=== PATIENT | male | born 1935 | race Caucasian/White ===

== ENCOUNTER 2020-01-06 13:59 | Inpatient (IN) ==
[2020-01-06] MEDS ORDERED: Naloxone 0.4 MG/ML INJ IVP PRN (17:00)
[2020-01-06] MEDS: 0.9 % Sodium Chloride 1,000 ML IVC SCH (18:02)
[2020-01-06] MEDS: cefTRIAXone 1,000 MG in Water for inj. (sterile) 10 ML IVP SCH (18:03)
[2020-01-06 19:01] LABS: Basophils % 0.2 %; Hematocrit 25.7 % (37.5-50.1); Hemoglobin 8.7 g/dL (12.9-16.9); Immature Granulocytes % 0.5 % (0-4); Lymphocytes # 0.2 K/mcL (0.6-4.6); Lymphocytes % 3.1 %; Mean Corpuscular HGB Conc 33.9 g/dL (31.6-35.5); Mean Corpuscular Hemoglobin 29.1 pg (28.0-33.3); Mean Platelet Volume 10.5 fL (9.4-12.4); Monocytes # 0.1 K/mcL (0.0-1.3); Monocytes % 0.8 %; Neutrophils # 5.8 K/mcL (1.6-8.9); Platelet Count 231 K/mcL (140-400); Red Blood Count 2.99 M/mcL (4.19-5.50); Red Cell Distribution Width 13.1 % (11.5-14.5); Segmented Neutrophils % 95.4 %; White Blood Count 6.1 K/mcL (4.3-11.1)
[2020-01-06 19:19] LABS: Platelet Estimate Normal (Normal)
[2020-01-06 19:20] LABS: Potassium 4.2 mEq/L (3.5-5.1)
[2020-01-06] MEDS ORDERED: amLODIPine 5 MG TABLET PO SCH (21:00)
[2020-01-06 23:20] LABS: Calcium 10.3 mg/dL (8.6-10.3); Potassium 4.3 mEq/L (3.5-5.1)
[2020-01-06] MEDS: *HR* LORazepam 1 MG TABLET PO SCH (23:28)
[2020-01-07] MEDS: 0.9 % Sodium Chloride 1,000 ML IVC SCH (05:03)
[2020-01-07 05:44] LABS: Hematocrit 24.1 % (37.5-50.1); Hemoglobin 8.2 g/dL (12.9-16.9); Immature Granulocytes % 0.6 % (0-4); Lymphocytes # 0.4 K/mcL (0.6-4.6); Lymphocytes % 10.3 %; Mean Corpuscular Hemoglobin 29.1 pg (28.0-33.3); Mean Corpuscular Volume 85.5 fL (83.0-100.0); Mean Platelet Volume 10.4 fL (9.4-12.4); Monocytes % 1.1 %; Neutrophils # 3.2 K/mcL (1.6-8.9); Platelet Count 212 K/mcL (140-400); Red Blood Count 2.82 M/mcL (4.19-5.50); Red Cell Distribution Width 13.2 % (11.5-14.5); White Blood Count 3.6 K/mcL (4.3-11.1)
[2020-01-07 06:03] LABS: Calcium 10.5 mg/dL (8.6-10.3); Magnesium 1.9 mg/dL (1.6-2.6); Potassium 4.3 mEq/L (3.5-5.1)
[2020-01-07] MEDS: atenoloL 25 MG TABLET PO SCH (07:22)
[2020-01-07] MEDS: Isosorbide MONOnitrate (24 HR) 30 MG TAB.ER.24H PO SCH (07:23)
[2020-01-07] MEDS: amLODIPine 5 MG TABLET PO SCH (07:23)
[2020-01-07] MEDS ORDERED: *HR* LORazepam 1 MG TABLET PO SCH (09:00)
[2020-01-07] MEDS: cefTRIAXone 1,000 MG in Water for inj. (sterile) 10 ML IVP SCH (17:54)
[2020-01-07] MEDS: *HR* LORazepam 1 MG TABLET PO SCH (20:03)
[2020-01-08 03:56] LABS: Hematocrit 23.2 % (37.5-50.1); Hemoglobin 7.5 g/dL (12.9-16.9); Mean Corpuscular HGB Conc 32.3 g/dL (31.6-35.5); Mean Corpuscular Hemoglobin 28.8 pg (28.0-33.3); Mean Corpuscular Volume 89.2 fL (83.0-100.0); Mean Platelet Volume 10.6 fL (9.4-12.4); Platelet Count 205 K/mcL (140-400); Red Cell Distribution Width 13.5 % (11.5-14.5)
[2020-01-08 03:57] LABS: White Blood Count 6.8 K/mcL (4.3-11.1)
[2020-01-08 04:15] LABS: Calcium 9.2 mg/dL (8.6-10.3); Potassium 4.1 mEq/L (3.5-5.1)
[2020-01-08] MEDS: atenoloL 25 MG TABLET PO SCH (07:31)
[2020-01-08] MEDS: amLODIPine 5 MG TABLET PO SCH (07:32)
[2020-01-08] MEDS: Isosorbide MONOnitrate (24 HR) 30 MG TAB.ER.24H PO SCH (07:32)
[2020-01-08] MEDS: Azithromycin 250 MG TABLET PO SCH (10:07)
[2020-01-08] MEDS ORDERED: Ipratropium/Albuterol Neb 3 ML IH PRN (11:21)
[2020-01-08] MEDS: Furosemide 20 MG/2 ML VIAL IVP SCH ×2 (11:33→20:55)
[2020-01-08] MEDS: MethylPREDNISolone 40 MG/ML VIAL IVP SCH ×2 (11:36→17:29)
[2020-01-08] MEDS: Budesonide/Formoterol 160/4.5 1 PUFF INH IH SCH ×2 (11:49→19:57)
[2020-01-08 13:51] LABS: Total Volume 24 Hour,Urine 0.56 Liters (0.80-1.80)
[2020-01-08 13:58] LABS: Sodium, Urine 28.7 mEq/L
[2020-01-08 14:11] LABS: Hematocrit 24.5 % (37.5-50.1); Hemoglobin 8.2 g/dL (12.9-16.9)
[2020-01-08 14:47] LABS: Basophils % 0.1 %; Eosinophils % 0.3 %; Immature Granulocytes % 0.4 % (0-4); Lymphocytes # 0.3 K/mcL (0.6-4.6); Lymphocytes % 4.5 %; Mean Corpuscular HGB Conc 33.2 g/dL (31.6-35.5); Mean Corpuscular Hemoglobin 29.5 pg (28.0-33.3); Mean Corpuscular Volume 88.8 fL (83.0-100.0); Mean Platelet Volume 11.1 fL (9.4-12.4); Monocytes # 0.3 K/mcL (0.0-1.3); Monocytes % 3.3 %; Neutrophils # 6.9 K/mcL (1.6-8.9); Platelet Count 228 K/mcL (140-400); Red Blood Count 2.85 M/mcL (4.19-5.50); Red Cell Distribution Width 13.5 % (11.5-14.5); Segmented Neutrophils % 91.4 %; White Blood Count 7.6 K/mcL (4.3-11.1)
[2020-01-08] MEDS: cefTRIAXone 1,000 MG in Water for inj. (sterile) 10 ML IVP SCH (17:29)
[2020-01-08] MEDS: *HR* LORazepam 1 MG TABLET PO SCH (22:44)
[2020-01-09 02:22] LABS: Hematocrit 22.7 % (37.5-50.1); Hemoglobin 7.6 g/dL (12.9-16.9); Immature Granulocytes % 0.5 % (0-4); Lymphocytes # 0.3 K/mcL (0.6-4.6); Lymphocytes % 6.6 %; Mean Corpuscular HGB Conc 33.5 g/dL (31.6-35.5); Mean Corpuscular Hemoglobin 29.3 pg (28.0-33.3); Mean Corpuscular Volume 87.6 fL (83.0-100.0); Mean Platelet Volume 10.4 fL (9.4-12.4); Monocytes % 0.8 %; Neutrophils # 3.5 K/mcL (1.6-8.9); Platelet Count 195 K/mcL (140-400); Red Blood Count 2.59 M/mcL (4.19-5.50); Red Cell Distribution Width 13.1 % (11.5-14.5); Segmented Neutrophils % 92.1 %
[2020-01-09 02:30] LABS: White Blood Count 3.8 K/mcL (4.3-11.1)
[2020-01-09 02:34] LABS: Calcium 8.6 mg/dL (8.6-10.3); Potassium 4.6 mEq/L (3.5-5.1)
[2020-01-09] MEDS: MethylPREDNISolone 40 MG/ML VIAL IVP SCH ×2 (06:27→17:06)
[2020-01-09] MEDS: atenoloL 25 MG TABLET PO SCH (07:30)
[2020-01-09] MEDS: amLODIPine 5 MG TABLET PO SCH (07:30)
[2020-01-09] MEDS: Isosorbide MONOnitrate (24 HR) 30 MG TAB.ER.24H PO SCH (07:30)
[2020-01-09] MEDS: Furosemide 20 MG/2 ML VIAL IVP SCH ×2 (07:30→19:58)
[2020-01-09] MEDS: Azithromycin 250 MG TABLET PO SCH (10:41)
[2020-01-09] MEDS: Budesonide/Formoterol 160/4.5 1 PUFF INH IH SCH ×2 (10:55→20:14)
[2020-01-09] MEDS: cefTRIAXone 1,000 MG in Water for inj. (sterile) 10 ML IVP SCH (17:06)
[2020-01-09] MEDS: *HR* LORazepam 1 MG TABLET PO SCH (19:58)
[2020-01-10 01:17] LABS: Hematocrit 23.4 % (37.5-50.1); Hemoglobin 7.8 g/dL (12.9-16.9); Immature Granulocytes % 0.4 % (0-4); Lymphocytes # 0.3 K/mcL (0.6-4.6); Lymphocytes % 4.4 %; Mean Corpuscular HGB Conc 33.3 g/dL (31.6-35.5); Mean Corpuscular Hemoglobin 29.3 pg (28.0-33.3); Mean Platelet Volume 10.5 fL (9.4-12.4); Monocytes # 0.1 K/mcL (0.0-1.3); Monocytes % 1.8 %; Neutrophils # 6.6 K/mcL (1.6-8.9); Platelet Count 205 K/mcL (140-400); Red Blood Count 2.66 M/mcL (4.19-5.50); Red Cell Distribution Width 13.1 % (11.5-14.5); Segmented Neutrophils % 93.4 %
[2020-01-10 01:28] LABS: White Blood Count 7.1 K/mcL (4.3-11.1)
[2020-01-10 01:35] LABS: Calcium 8.7 mg/dL (8.6-10.3); Potassium 4.6 mEq/L (3.5-5.1)
[2020-01-10] MEDS: MethylPREDNISolone 40 MG/ML VIAL IVP SCH ×2 (05:10→17:06)
[2020-01-10] MEDS: Budesonide/Formoterol 160/4.5 1 PUFF INH IH SCH ×2 (07:57→21:22)
[2020-01-10] MEDS: Furosemide 20 MG/2 ML VIAL IVP SCH (08:00)
[2020-01-10] MEDS: Isosorbide MONOnitrate (24 HR) 30 MG TAB.ER.24H PO SCH (08:39)
[2020-01-10] MEDS: atenoloL 25 MG TABLET PO SCH (08:39)
[2020-01-10] MEDS: amLODIPine 5 MG TABLET PO SCH (08:39)
[2020-01-10] MEDS: Azithromycin 250 MG TABLET PO SCH (10:11)
[2020-01-10] MEDS: cefTRIAXone 1,000 MG in Water for inj. (sterile) 10 ML IVP SCH (17:06)
[2020-01-10] MEDS: *HR* LORazepam 1 MG TABLET PO SCH (20:49)
[2020-01-11 01:04] LABS: Hematocrit 22.7 % (37.5-50.1); Hemoglobin 7.6 g/dL (12.9-16.9); Immature Granulocytes % 0.7 % (0-4); Lymphocytes # 0.3 K/mcL (0.6-4.6); Lymphocytes % 4.5 %; Mean Corpuscular HGB Conc 33.5 g/dL (31.6-35.5); Mean Corpuscular Hemoglobin 29.3 pg (28.0-33.3); Mean Corpuscular Volume 87.6 fL (83.0-100.0); Mean Platelet Volume 11.1 fL (9.4-12.4); Monocytes # 0.2 K/mcL (0.0-1.3); Monocytes % 2.7 %; Neutrophils # 5.5 K/mcL (1.6-8.9); Platelet Count 216 K/mcL (140-400); Red Blood Count 2.59 M/mcL (4.19-5.50); Red Cell Distribution Width 13.1 % (11.5-14.5); Segmented Neutrophils % 92.1 %
[2020-01-11 01:21] LABS: Calcium 8.2 mg/dL (8.6-10.3); Potassium 4.5 mEq/L (3.5-5.1); Uric Acid 13.7 mg/dL (2.3-7.6)
[2020-01-11 01:33] LABS: Thyroid Stimulating Hormone 0.57 mcIU/mL (0.340-5.600)
[2020-01-11] MEDS: MethylPREDNISolone 40 MG/ML VIAL IVP SCH (05:33)
[2020-01-11] MEDS: Budesonide/Formoterol 160/4.5 1 PUFF INH IH SCH ×2 (07:07→19:36)
[2020-01-11] MEDS: atenoloL 25 MG TABLET PO SCH (08:00)
[2020-01-11] MEDS: amLODIPine 5 MG TABLET PO SCH (08:00)
[2020-01-11] MEDS: Isosorbide MONOnitrate (24 HR) 30 MG TAB.ER.24H PO SCH (08:00)
[2020-01-11 08:58] LABS: Bacteria,Urine Few per hpf (None-Few); Bilirubin,Urine Negative (Negative); Blood,Urine Negative (Negative); Clarity,Urine Clear (Clear); Color,Urine Colorless (Yellow); Glucose,Urine (UA) Normal (Normal); Ketones,Urine Negative (Negative); Leukocyte Esterase,Urine Negative (Negative); Mucus,Urine Few per lpf (None-Few); Nitrite,Urine Negative (Negative); Protein,Urine 100 mg/dL (Neg-Trace); RBC,Urine 0-3 per hpf (0-3); Specific Gravity,Urine 1.012 (1.010-1.025); Squamous Epithelial Cell,Urine Few per hpf (None-Few); Urobilinogen,Urine Normal (Normal)
[2020-01-11] MEDS: Azithromycin 250 MG TABLET PO SCH (10:40)
[2020-01-11] MEDS: allopurinoL 100 MG TABLET PO SCH (14:39)
[2020-01-11] MEDS: hydrALAZINE 25 MG TABLET PO SCH (17:27)
[2020-01-11] MEDS: cefTRIAXone 1,000 MG in Water for inj. (sterile) 10 ML IVP SCH (17:28)
[2020-01-11] MEDS: *HR* LORazepam 1 MG TABLET PO SCH (20:42)
[2020-01-12] MEDS: hydrALAZINE 25 MG TABLET PO SCH ×2 (00:17→07:37)
[2020-01-12 05:59] LABS: Basophils % 0.1 %; Eosinophils % 0.1 %; Hematocrit 24.1 % (37.5-50.1); Hemoglobin 8.2 g/dL (12.9-16.9); Immature Granulocytes % 1.3 % (0-4); Lymphocytes # 0.8 K/mcL (0.6-4.6); Lymphocytes % 8.4 %; Mean Corpuscular Hemoglobin 29.6 pg (28.0-33.3); Monocytes # 0.9 K/mcL (0.0-1.3); Monocytes % 9.3 %; Platelet Count 213 K/mcL (140-400); Red Blood Count 2.77 M/mcL (4.19-5.50); Red Cell Distribution Width 13.2 % (11.5-14.5); Segmented Neutrophils % 80.8 %
[2020-01-12 06:00] LABS: Neutrophils # 7.8 K/mcL (1.6-8.9); White Blood Count 9.6 K/mcL (4.3-11.1)
[2020-01-12 06:25] LABS: Calcium 8.5 mg/dL (8.6-10.3)
[2020-01-12 06:48] LABS: Folate > 22.3 ng/mL (3.0-16.0); Vitamin B12 1178 pg/mL (250-1100)
[2020-01-12] MEDS: Budesonide/Formoterol 160/4.5 1 PUFF INH IH SCH (07:10)
[2020-01-12] MEDS: Isosorbide MONOnitrate (24 HR) 30 MG TAB.ER.24H PO SCH (07:37)
[2020-01-12] MEDS: allopurinoL 100 MG TABLET PO SCH (07:37)
[2020-01-12] MEDS: amLODIPine 5 MG TABLET PO SCH (07:37)
[2020-01-12] MEDS: atenoloL 25 MG TABLET PO SCH (07:37)
[2020-01-12 08:56] LABS: Protein/Creatinine Ratio,Urine 1.59 mg/mg (0.00-0.20); Sodium, Urine 15.9 mEq/L
[2020-01-12] MEDS ORDERED: predniSONE 20 MG TABLET PO SCH (09:00)
[2020-01-12 11:13] VITALS: BP 143/67
[2020-01-12] MEDS: Azithromycin 250 MG TABLET PO SCH (11:35)
== END 2020-01-12 15:50 | disposition home health service (06) | DRG 193 ==
LOC: 2NENU → SUATTDRO 01-08 12:13 → 2ANU 01-08 18:40
PROVIDERS: ADMIT Pharmacist; ATTEND Internal Medicine

== ENCOUNTER 2020-02-08 15:43 | Inpatient (IN) ==
[2020-02-08 16:53] LABS: Basophils % 0.1 %; Hematocrit 24.9 % (37.5-50.1); Hemoglobin 8.2 g/dL (12.9-16.9); Immature Granulocytes % 1.7 % (0-4); Lymphocytes # 0.3 K/mcL (0.6-4.6); Lymphocytes % 4.5 %; Mean Corpuscular HGB Conc 32.9 g/dL (31.6-35.5); Mean Corpuscular Hemoglobin 29.7 pg (28.0-33.3); Mean Corpuscular Volume 90.2 fL (83.0-100.0); Mean Platelet Volume 10.8 fL (9.4-12.4); Monocytes # 0.2 K/mcL (0.0-1.3); Monocytes % 2.5 %; Neutrophils # 6.3 K/mcL (1.6-8.9); Platelet Count 223 K/mcL (140-400); Red Blood Count 2.76 M/mcL (4.19-5.50); Red Cell Distribution Width 15.5 % (11.5-14.5); Segmented Neutrophils % 91.2 %; White Blood Count 6.9 K/mcL (4.3-11.1)
[2020-02-08 16:57] LABS: Prothrombin Time 11.5 Seconds (9.4-12.1)
[2020-02-08 17:00] LABS: Activated Partial Thrombo Time 24.9 Seconds (26.0-36.0)
[2020-02-08 17:16] LABS: Albumin 3.8 g/dL (3.5-5.7); Albumin/Globulin Ratio 1.7 (1.1-2.2); Bilirubin,Direct 0.1 mg/dL (0.0-0.2); Bilirubin,Indirect 0.3 mg/dL (0.0-1.0); Bilirubin,Total 0.4 mg/dL (0.3-1.0); Calcium 10.2 mg/dL (8.6-10.3); Globulin 2.3 g/dL (2.4-3.5); Potassium 4.3 mEq/L (3.5-5.1); Total Protein 6.1 g/dL (6.4-8.9); Troponin I 0.04 ng/mL (< 0.04)
[2020-02-08] MEDS ORDERED: *HR* Heparin 5,000 UNIT/ML VIAL IVP ONE (19:29)
[2020-02-08] MEDS ORDERED: *HR* Heparin 5,000 UNIT/ML VIAL IVP PRN ×2 (19:29)
[2020-02-08] MEDS ORDERED: Heparin 25,000 UNIT/250 ML D5W 25,000 UNIT/250 ML IV.SOLN IVC SCH (19:30)
[2020-02-08] MEDS ORDERED: Ondansetron 4 MG/2 ML VIAL IVP PRN (20:07)
[2020-02-08] MEDS ORDERED: Naloxone 0.4 MG/ML INJ IVP PRN (20:07)
[2020-02-08] MEDS ORDERED: D5% in Water 1,000 ML IVC PRN (20:12)
[2020-02-08] MEDS ORDERED: Dextrose Gel 15 GM/37.5 ML TUBE PO PRN ×2 (20:12)
[2020-02-08] MEDS ORDERED: *HR* Dextrose 50 % in Water (Vial) 50 ML VIAL IVP PRN (20:12)
[2020-02-08 20:24] LABS: Bilirubin,Urine Negative (Negative); Blood,Urine Negative (Negative); Clarity,Urine Clear (Clear); Color,Urine Light-Yellow (Yellow); Glucose,Urine (UA) Normal (Normal); Ketones,Urine Negative (Negative); Leukocyte Esterase,Urine Negative (Negative); Nitrite,Urine Negative (Negative); PH,Urine 5.5 pH Units (5.0-8.0); Protein,Urine 50 mg/dL (Neg-Trace); Specific Gravity,Urine 1.012 (1.010-1.025); Squamous Epithelial Cell,Urine Few per hpf (None-Few); Urobilinogen,Urine Normal (Normal); WBC,Urine 0-3 per hpf (0-3)
[2020-02-08] MEDS ORDERED: Furosemide 40 MG/4 ML VIAL IVP ONE (20:46)
[2020-02-08] MEDS ORDERED: 0.9 % Sodium Chloride 1,000 ML IVC SCH (21:00)
[2020-02-08] MEDS ORDERED: Insulin DETEMIR 100 UNIT/ML X5UNITS SQ SCH (21:00)
[2020-02-08] MEDS ORDERED: Perflutren Lipid Microsphere 1.3 ML in 0.9 % Sodium Chloride 8.7 ML IVP PRN (21:04)
[2020-02-08] MEDS: Budesonide/Formoterol 160/4.5 1 PUFF INH IH SCH (22:44)
[2020-02-08] MEDS: Insulin LISPRO 300 UNITS/3 ML VIAL SQ SCH (23:13)
[2020-02-08] MEDS: hydrALAZINE 25 MG TABLET PO SCH (23:16)
[2020-02-08] MEDS ORDERED: *HR* LORazepam 1 MG TABLET PO ONE (23:30)
[2020-02-09 00:40] LABS: Prothrombin Time 11.9 Seconds (9.4-12.1)
[2020-02-09 00:44] LABS: Heparin anti-factor XA UFH < 0.04 IU/mL (0.30-0.70)
[2020-02-09 00:50] LABS: Hematocrit 24.4 % (37.5-50.1); Hemoglobin 7.9 g/dL (12.9-16.9); Mean Corpuscular HGB Conc 32.4 g/dL (31.6-35.5); Mean Corpuscular Hemoglobin 29.3 pg (28.0-33.3); Mean Corpuscular Volume 90.4 fL (83.0-100.0); Mean Platelet Volume 11.4 fL (9.4-12.4); Platelet Count 223 K/mcL (140-400); Red Cell Distribution Width 15.5 % (11.5-14.5); White Blood Count 7.6 K/mcL (4.3-11.1)
[2020-02-09 05:17] LABS: Basophils % 0.2 %; Eosinophils % 0.1 %; Hematocrit 23.8 % (37.5-50.1); Hemoglobin 7.7 g/dL (12.9-16.9); Immature Granulocytes % 1.1 % (0-4); Lymphocytes # 0.7 K/mcL (0.6-4.6); Lymphocytes % 7.8 %; Mean Corpuscular HGB Conc 32.4 g/dL (31.6-35.5); Mean Corpuscular Hemoglobin 29.7 pg (28.0-33.3); Mean Corpuscular Volume 91.9 fL (83.0-100.0); Mean Platelet Volume 11.1 fL (9.4-12.4); Monocytes # 0.7 K/mcL (0.0-1.3); Monocytes % 7.8 %; Neutrophils # 7.3 K/mcL (1.6-8.9); Platelet Count 207 K/mcL (140-400); Red Blood Count 2.59 M/mcL (4.19-5.50); Red Cell Distribution Width 15.6 % (11.5-14.5); White Blood Count 8.8 K/mcL (4.3-11.1)
[2020-02-09 05:19] LABS: INR 1.1; Prothrombin Time 12.9 Seconds (9.4-12.1)
[2020-02-09 05:38] LABS: Calcium 9.6 mg/dL (8.6-10.3); Chol/HDL Ratio 2.5 (0-4.9); Magnesium 2.4 mg/dL (1.6-2.6); Phosphorous 4.6 mg/dL (2.7-4.5); Uric Acid 11.8 mg/dL (2.3-7.6)
[2020-02-09] MEDS: Budesonide/Formoterol 160/4.5 1 PUFF INH IH SCH ×2 (07:21→20:20)
[2020-02-09] MEDS: Insulin LISPRO 300 UNITS/3 ML VIAL SQ SCH ×4 (07:51→22:13)
[2020-02-09] MEDS: Isosorbide MONOnitrate (24 HR) 30 MG TAB.ER.24H PO SCH (08:00)
[2020-02-09] MEDS: Multivit/Ca/Min/Fe/FA 1 TAB TABLET PO SCH (08:00)
[2020-02-09] MEDS: atenoloL 25 MG TABLET PO SCH (08:00)
[2020-02-09] MEDS: allopurinoL 100 MG TABLET PO SCH (08:00)
[2020-02-09] MEDS: hydrALAZINE 25 MG TABLET PO SCH ×3 (08:00→22:15)
[2020-02-09] MEDS ORDERED: *HR* LORazepam 1 MG TABLET PO SCH (09:00)
[2020-02-09 11:30] LABS: Amylase,Pleural Fluid < 10 Units/L (No Ref Range); Glucose,Pleural Fluid 82 mg/dL (No Ref Range); Total Protein,Pleural Fluid < 3.0 g/dL
[2020-02-09 11:35] LABS: Appearance of Pleural Fl Clear (Clear); RBC,Pleural Fluid < 2000 RBC/mcL
[2020-02-09] MEDS ORDERED: 0.9 % Sodium Chloride 250 ML IVC PRN (11:41)
[2020-02-09] MEDS ORDERED: 0.9 % Sodium Chloride 1,000 ML PRIME SCH (11:45)
[2020-02-09 12:15] LABS: Basophils,Pleural Fluid 0 %; Eosinophils,Pleural Fluid 0 %
[2020-02-09 12:26] LABS: Sodium, Urine 65.7 mEq/L
[2020-02-09 13:46] LABS: Hepatitis B Surface Antibody < 3.10 mIU/mL
[2020-02-09 13:57] LABS: Hepatitis B Surface Antigen Nonreactive (Nonreactive)
[2020-02-09] MEDS: *HR* LORazepam 1 MG TABLET PO SCH (22:16)
[2020-02-10] MEDS: *HR* Heparin 5,000 UNIT/ML VIAL SQ SCH ×2 (05:52→18:05)
[2020-02-10] MEDS: Budesonide/Formoterol 160/4.5 1 PUFF INH IH SCH ×2 (07:45→20:04)
[2020-02-10 07:48] LABS: Basophils % 0.5 %; Eosinophils # 0.4 K/mcL (0.0-0.6); Eosinophils % 4.3 %; Hematocrit 25.9 % (37.5-50.1); Hemoglobin 8.3 g/dL (12.9-16.9); Immature Granulocytes % 1.2 % (0-4); Lymphocytes # 0.6 K/mcL (0.6-4.6); Mean Corpuscular Hemoglobin 29.6 pg (28.0-33.3); Mean Corpuscular Volume 92.5 fL (83.0-100.0); Mean Platelet Volume 11.7 fL (9.4-12.4); Monocytes # 0.6 K/mcL (0.0-1.3); Monocytes % 7.1 %; Neutrophils # 6.5 K/mcL (1.6-8.9); Nucleated Red Blood Cells 0.2 /100 WBC (0); Platelet Count 202 K/mcL (140-400); Red Cell Distribution Width 15.9 % (11.5-14.5); Segmented Neutrophils % 79.9 %; White Blood Count 8.2 K/mcL (4.3-11.1)
[2020-02-10 08:05] LABS: Calcium 8.4 mg/dL (8.6-10.3); Potassium 3.7 mEq/L (3.5-5.1)
[2020-02-10] MEDS: Insulin LISPRO 300 UNITS/3 ML VIAL SQ SCH ×4 (09:05→22:00)
[2020-02-10] MEDS ORDERED: 0.9 % Sodium Chloride 250 ML IVC PRN (09:27)
[2020-02-10] MEDS ORDERED: 0.9 % Sodium Chloride 1,000 ML PRIME SCH (09:30)
[2020-02-10] MEDS: hydrALAZINE 25 MG TABLET PO SCH ×3 (15:18→22:00)
[2020-02-10] MEDS: allopurinoL 100 MG TABLET PO SCH (15:20)
[2020-02-10] MEDS: atenoloL 25 MG TABLET PO SCH (15:20)
[2020-02-10] MEDS: Multivit/Ca/Min/Fe/FA 1 TAB TABLET PO SCH (15:20)
[2020-02-10] MEDS: Isosorbide MONOnitrate (24 HR) 30 MG TAB.ER.24H PO SCH (15:20)
[2020-02-10] MEDS: *HR* LORazepam 1 MG TABLET PO SCH (22:00)
[2020-02-11 01:44] LABS: Hematocrit 25.2 % (37.5-50.1); Mean Corpuscular HGB Conc 31.7 g/dL (31.6-35.5); Mean Corpuscular Hemoglobin 28.8 pg (28.0-33.3); Mean Corpuscular Volume 90.6 fL (83.0-100.0); Mean Platelet Volume 11.2 fL (9.4-12.4); Platelet Count 182 K/mcL (140-400); Red Blood Count 2.78 M/mcL (4.19-5.50); Red Cell Distribution Width 15.8 % (11.5-14.5); White Blood Count 6.6 K/mcL (4.3-11.1)
[2020-02-11 02:08] LABS: Calcium 8.1 mg/dL (8.6-10.3); Potassium 3.8 mEq/L (3.5-5.1)
[2020-02-11] MEDS: *HR* Heparin 5,000 UNIT/ML VIAL SQ SCH ×2 (06:37→19:01)
[2020-02-11] MEDS: Budesonide/Formoterol 160/4.5 1 PUFF INH IH SCH ×2 (08:05→22:01)
[2020-02-11] MEDS: Isosorbide MONOnitrate (24 HR) 30 MG TAB.ER.24H PO SCH (10:25)
[2020-02-11] MEDS: allopurinoL 100 MG TABLET PO SCH (10:25)
[2020-02-11] MEDS: hydrALAZINE 25 MG TABLET PO SCH ×3 (10:25→22:35)
[2020-02-11] MEDS: atenoloL 25 MG TABLET PO SCH (10:26)
[2020-02-11] MEDS: Multivit/Ca/Min/Fe/FA 1 TAB TABLET PO SCH (10:26)
[2020-02-11] MEDS: Furosemide 40 MG/4 ML VIAL IVP SCH (10:27)
[2020-02-11] MEDS: Insulin LISPRO 300 UNITS/3 ML VIAL SQ SCH ×4 (10:42→22:48)
[2020-02-11] MEDS: *HR* LORazepam 1 MG TABLET PO SCH (22:36)
[2020-02-12 03:48] LABS: Calcium 7.7 mg/dL (8.6-10.3); Potassium 3.7 mEq/L (3.5-5.1)
[2020-02-12 04:12] LABS: Hematocrit 25.5 % (37.5-50.1); Hemoglobin 8.1 g/dL (12.9-16.9); Mean Corpuscular HGB Conc 31.8 g/dL (31.6-35.5); Mean Corpuscular Hemoglobin 29.2 pg (28.0-33.3); Mean Corpuscular Volume 92.1 fL (83.0-100.0); Mean Platelet Volume 11.8 fL (9.4-12.4); Platelet Count 159 K/mcL (140-400); Red Blood Count 2.77 M/mcL (4.19-5.50); Red Cell Distribution Width 15.5 % (11.5-14.5)
[2020-02-12] MEDS: *HR* Heparin 5,000 UNIT/ML VIAL SQ SCH ×2 (06:23→17:39)
[2020-02-12] MEDS: atenoloL 25 MG TABLET PO SCH (08:43)
[2020-02-12] MEDS: Multivit/Ca/Min/Fe/FA 1 TAB TABLET PO SCH (08:43)
[2020-02-12] MEDS: Insulin LISPRO 300 UNITS/3 ML VIAL SQ SCH ×4 (08:43→20:18)
[2020-02-12] MEDS: Furosemide 40 MG/4 ML VIAL IVP SCH (08:43)
[2020-02-12] MEDS: hydrALAZINE 25 MG TABLET PO SCH ×3 (08:44→20:17)
[2020-02-12] MEDS: Isosorbide MONOnitrate (24 HR) 30 MG TAB.ER.24H PO SCH (08:44)
[2020-02-12] MEDS: allopurinoL 100 MG TABLET PO SCH (08:44)
[2020-02-12] MEDS: Budesonide/Formoterol 160/4.5 1 PUFF INH IH SCH ×2 (11:38→21:50)
[2020-02-12] MEDS ORDERED: Furosemide 40 MG/4 ML VIAL IVP ONE (15:40)
[2020-02-12] MEDS: *HR* LORazepam 1 MG TABLET PO SCH (20:17)
[2020-02-13 01:46] LABS: Hematocrit 26.2 % (37.5-50.1); Hemoglobin 8.1 g/dL (12.9-16.9); Mean Corpuscular HGB Conc 30.9 g/dL (31.6-35.5); Mean Corpuscular Hemoglobin 28.5 pg (28.0-33.3); Mean Corpuscular Volume 92.3 fL (83.0-100.0); Mean Platelet Volume 11.7 fL (9.4-12.4); Platelet Count 161 K/mcL (140-400); Red Blood Count 2.84 M/mcL (4.19-5.50); Red Cell Distribution Width 15.4 % (11.5-14.5); White Blood Count 7.1 K/mcL (4.3-11.1)
[2020-02-13 02:07] LABS: Calcium 7.4 mg/dL (8.6-10.3); Potassium 3.5 mEq/L (3.5-5.1)
[2020-02-13] MEDS: *HR* Heparin 5,000 UNIT/ML VIAL SQ SCH (05:19)
[2020-02-13] MEDS ORDERED: Furosemide 40 MG TABLET PO SCH (09:00)
[2020-02-13] MEDS: Insulin LISPRO 300 UNITS/3 ML VIAL SQ SCH (09:57)
[2020-02-13] MEDS: allopurinoL 100 MG TABLET PO SCH (10:05)
[2020-02-13] MEDS: atenoloL 25 MG TABLET PO SCH (10:05)
[2020-02-13] MEDS: Isosorbide MONOnitrate (24 HR) 30 MG TAB.ER.24H PO SCH (10:05)
[2020-02-13] MEDS: hydrALAZINE 25 MG TABLET PO SCH (10:05)
[2020-02-13] MEDS: Multivit/Ca/Min/Fe/FA 1 TAB TABLET PO SCH (10:05)
[2020-02-13] MEDS: Budesonide/Formoterol 160/4.5 1 PUFF INH IH SCH (10:24)
[2020-02-13 10:36] VITALS: BP 134/67
== END 2020-02-13 13:24 | disposition home health service (06) | DRG 291 ==
LOC: EMEROOARM 15:43 → 3ANU 15:43
PROVIDERS: ADMIT Family Medicine; ATTEND Family Medicine

== ENCOUNTER 2020-07-31 17:24 | Inpatient (IN) ==
[2020-07-31] MEDS ORDERED: Naloxone 0.4 MG/ML INJ IVP PRN (19:41)
[2020-07-31] MEDS ORDERED: D5% in Water 1,000 ML IVC PRN (21:03)
[2020-07-31] MEDS ORDERED: Dextrose Gel 15 GM/37.5 ML TUBE PO PRN ×2 (21:03)
[2020-07-31] MEDS ORDERED: *HR* Dextrose 50 % in Water (Vial) 50 ML VIAL IVP PRN (21:03)
[2020-07-31] MEDS: *HR* Heparin 5,000 UNIT/ML VIAL SQ SCH (21:58)
[2020-08-01 05:02] LABS: Basophils % 0.3 %; Eosinophils # 0.1 K/mcL (0.0-0.6); Eosinophils % 2.6 %; Hematocrit 24.9 % (37.5-50.1); Hemoglobin 7.7 g/dL (12.9-16.9); Immature Granulocytes % 0.3 % (0-4); Lymphocytes # 0.8 K/mcL (0.6-4.6); Lymphocytes % 19.7 %; Mean Corpuscular HGB Conc 30.9 g/dL (31.6-35.5); Mean Corpuscular Hemoglobin 28.1 pg (28.0-33.3); Mean Corpuscular Volume 90.9 fL (83.0-100.0); Mean Platelet Volume 11.2 fL (9.4-12.4); Monocytes # 0.2 K/mcL (0.0-1.3); Monocytes % 5.6 %; Neutrophils # 2.8 K/mcL (1.6-8.9); Platelet Count 109 K/mcL (140-400); Red Blood Count 2.74 M/mcL (4.19-5.50); Red Cell Distribution Width 15.9 % (11.5-14.5); Segmented Neutrophils % 71.5 %; White Blood Count 3.9 K/mcL (4.3-11.1)
[2020-08-01 05:26] LABS: Potassium 4.1 mEq/L (3.5-5.1)
[2020-08-01] MEDS: *HR* Heparin 5,000 UNIT/ML VIAL SQ SCH ×3 (05:31→20:28)
[2020-08-01] MEDS: Insulin LISPRO 300 UNITS/3 ML VIAL SUBQ SCH ×4 (08:25→20:15)
[2020-08-01] MEDS ORDERED: Furosemide 40 MG/4 ML VIAL IVP ONE (11:23)
[2020-08-01] MEDS ORDERED: Albuterol 2.5 MG/3 ML NEBULIZER IH PRN (15:25)
[2020-08-01 17:55] LABS: Sodium, Urine 104.4 mEq/L
[2020-08-01] MEDS ORDERED: Ferumoxytol 510 MG in 0.9 % Sodium Chloride 100 ML IVPB ONE (18:15)
[2020-08-01] MEDS: Budesonide/Formoterol 160/4.5 1 PUFF INH IH SCH (20:19)
[2020-08-01] MEDS: *HR* LORazepam 1 MG TABLET PO SCH (20:27)
[2020-08-01] MEDS: hydrALAZINE 25 MG TABLET PO SCH (20:27)
[2020-08-01] MEDS: Furosemide 40 MG in 0.9 % Sodium Chloride 50 ML IV SCH (20:28)
[2020-08-02 05:16] LABS: Basophils % 0.3 %; Eosinophils # 0.1 K/mcL (0.0-0.6); Eosinophils % 3.6 %; Hematocrit 28.2 % (37.5-50.1); Hemoglobin 8.6 g/dL (12.9-16.9); Lymphocytes # 0.8 K/mcL (0.6-4.6); Lymphocytes % 20.9 %; Mean Corpuscular HGB Conc 30.5 g/dL (31.6-35.5); Mean Corpuscular Hemoglobin 27.4 pg (28.0-33.3); Mean Corpuscular Volume 89.8 fL (83.0-100.0); Monocytes # 0.3 K/mcL (0.0-1.3); Monocytes % 6.4 %; Neutrophils # 2.7 K/mcL (1.6-8.9); Platelet Count 129 K/mcL (140-400); Red Blood Count 3.14 M/mcL (4.19-5.50); Red Cell Distribution Width 15.9 % (11.5-14.5); Segmented Neutrophils % 68.8 %; White Blood Count 3.9 K/mcL (4.3-11.1)
[2020-08-02] MEDS: *HR* Heparin 5,000 UNIT/ML VIAL SQ SCH ×3 (05:26→20:07)
[2020-08-02 05:39] LABS: Potassium 4.1 mEq/L (3.5-5.1); Uric Acid 13.1 mg/dL (2.3-7.6)
[2020-08-02 06:00] LABS: Hepatitis B Surface Antigen Nonreactive (Nonreactive)
[2020-08-02 06:29] LABS: Hepatitis A Antibody IgM Nonreactive (Nonreactive); Hepatitis B Core IgM Nonreactive (Nonreactive); Hepatitis C Virus Antibody Nonreactive (Nonreactive)
[2020-08-02] MEDS: Budesonide/Formoterol 160/4.5 1 PUFF INH IH SCH ×2 (07:49→20:44)
[2020-08-02] MEDS: Insulin LISPRO 300 UNITS/3 ML VIAL SUBQ SCH ×4 (08:20→20:19)
[2020-08-02] MEDS: amLODIPine 5 MG TABLET PO SCH (08:22)
[2020-08-02] MEDS: Isosorbide MONOnitrate (24 HR) 30 MG TAB.ER.24H PO SCH (08:22)
[2020-08-02] MEDS: hydrALAZINE 25 MG TABLET PO SCH ×2 (08:22→20:09)
[2020-08-02] MEDS: atenoloL 25 MG TABLET PO SCH (08:22)
[2020-08-02] MEDS ORDERED: Furosemide 40 MG/4 ML VIAL IVP SCH (09:15)
[2020-08-02] MEDS ORDERED: Ondansetron 4 MG/2 ML VIAL IVP PRN (11:59)
[2020-08-02] MEDS: Furosemide 40 MG in 0.9 % Sodium Chloride 50 ML IV SCH (18:49)
[2020-08-02] MEDS: *HR* LORazepam 1 MG TABLET PO SCH (20:09)
[2020-08-02] MEDS ORDERED: Furosemide 40 MG/4 ML VIAL IVP ONE (21:00)
[2020-08-03 03:35] LABS: Basophils % 0.3 %; Eosinophils # 0.1 K/mcL (0.0-0.6); Eosinophils % 3.6 %; Hematocrit 26.1 % (37.5-50.1); Hemoglobin 7.8 g/dL (12.9-16.9); Lymphocytes # 0.8 K/mcL (0.6-4.6); Lymphocytes % 25.2 %; Mean Corpuscular HGB Conc 29.9 g/dL (31.6-35.5); Mean Corpuscular Hemoglobin 27.9 pg (28.0-33.3); Mean Corpuscular Volume 93.2 fL (83.0-100.0); Mean Platelet Volume 11.6 fL (9.4-12.4); Monocytes # 0.2 K/mcL (0.0-1.3); Neutrophils # 2.1 K/mcL (1.6-8.9); Platelet Count 120 K/mcL (140-400); Red Cell Distribution Width 15.8 % (11.5-14.5); Segmented Neutrophils % 63.9 %; White Blood Count 3.3 K/mcL (4.3-11.1)
[2020-08-03 03:46] LABS: Calcium 8.5 mg/dL (8.6-10.3); Potassium 4.4 mEq/L (3.5-5.1)
[2020-08-03] MEDS: *HR* Heparin 5,000 UNIT/ML VIAL SQ SCH ×3 (05:21→22:34)
[2020-08-03] MEDS: Insulin LISPRO 300 UNITS/3 ML VIAL SUBQ SCH ×4 (08:18→19:45)
[2020-08-03] MEDS: Furosemide 40 MG/4 ML VIAL IVP SCH ×2 (08:19→16:33)
[2020-08-03] MEDS: hydrALAZINE 25 MG TABLET PO SCH ×2 (08:19→19:38)
[2020-08-03] MEDS: amLODIPine 5 MG TABLET PO SCH (08:19)
[2020-08-03] MEDS: Isosorbide MONOnitrate (24 HR) 30 MG TAB.ER.24H PO SCH (08:19)
[2020-08-03] MEDS: atenoloL 25 MG TABLET PO SCH (08:19)
[2020-08-03] MEDS: Budesonide/Formoterol 160/4.5 1 PUFF INH IH SCH ×2 (10:11→20:11)
[2020-08-03] MEDS: *HR* LORazepam 1 MG TABLET PO SCH (19:38)
[2020-08-04] MEDS: *HR* Heparin 5,000 UNIT/ML VIAL SQ SCH ×3 (05:35→22:38)
[2020-08-04] MEDS: Insulin LISPRO 300 UNITS/3 ML VIAL SUBQ SCH ×4 (10:25→22:37)
[2020-08-04] MEDS: atenoloL 25 MG TABLET PO SCH (10:27)
[2020-08-04] MEDS: Furosemide 40 MG/4 ML VIAL IVP SCH ×2 (10:27→17:29)
[2020-08-04] MEDS: Isosorbide MONOnitrate (24 HR) 30 MG TAB.ER.24H PO SCH (10:27)
[2020-08-04] MEDS: hydrALAZINE 25 MG TABLET PO SCH ×2 (10:27→22:39)
[2020-08-04] MEDS: amLODIPine 5 MG TABLET PO SCH (10:27)
[2020-08-04] MEDS: Budesonide/Formoterol 160/4.5 1 PUFF INH IH SCH ×2 (11:00→20:11)
[2020-08-04] MEDS: *HR* LORazepam 1 MG TABLET PO SCH (22:40)
[2020-08-05 05:17] LABS: Basophils % 0.3 %; Eosinophils # 0.1 K/mcL (0.0-0.6); Eosinophils % 2.7 %; Hematocrit 27.4 % (37.5-50.1); Hemoglobin 8.3 g/dL (12.9-16.9); Immature Granulocytes % 0.3 % (0-4); Lymphocytes # 0.9 K/mcL (0.6-4.6); Lymphocytes % 25.3 %; Mean Corpuscular HGB Conc 30.3 g/dL (31.6-35.5); Mean Corpuscular Hemoglobin 27.9 pg (28.0-33.3); Mean Corpuscular Volume 92.3 fL (83.0-100.0); Mean Platelet Volume 11.4 fL (9.4-12.4); Monocytes # 0.3 K/mcL (0.0-1.3); Monocytes % 8.9 %; Neutrophils # 2.1 K/mcL (1.6-8.9); Platelet Count 117 K/mcL (140-400); Red Blood Count 2.97 M/mcL (4.19-5.50); Red Cell Distribution Width 16.2 % (11.5-14.5); Segmented Neutrophils % 62.5 %; White Blood Count 3.4 K/mcL (4.3-11.1)
[2020-08-05 05:33] LABS: Calcium 8.6 mg/dL (8.6-10.3); Potassium 4.1 mEq/L (3.5-5.1)
[2020-08-05] MEDS: *HR* Heparin 5,000 UNIT/ML VIAL SQ SCH (06:23)
[2020-08-05] MEDS: Budesonide/Formoterol 160/4.5 1 PUFF INH IH SCH (07:43)
[2020-08-05] MEDS: Insulin LISPRO 300 UNITS/3 ML VIAL SUBQ SCH ×2 (08:28→12:32)
[2020-08-05] MEDS: atenoloL 25 MG TABLET PO SCH (09:39)
[2020-08-05] MEDS: amLODIPine 5 MG TABLET PO SCH (09:39)
[2020-08-05] MEDS: Isosorbide MONOnitrate (24 HR) 30 MG TAB.ER.24H PO SCH (09:40)
[2020-08-05] MEDS: Furosemide 40 MG/4 ML VIAL IVP SCH (09:40)
[2020-08-05 15:49] VITALS: BP 151/69
== END 2020-08-05 16:38 | disposition home or self-care (01) | DRG 291 ==
LOC: 2ANU → SUATTDRO 19:12
PROVIDERS: ADMIT Internal Medicine; ATTEND Internal Medicine

== ENCOUNTER 2020-09-19 10:29 | Inpatient (IN) ==
[2020-09-19 11:26] LABS: Basophils % 0.5 %; Eosinophils # 0.2 K/mcL (0.0-0.6); Eosinophils % 2.7 %; Hematocrit 27.4 % (37.5-50.1); Hemoglobin 8.3 g/dL (12.9-16.9); Immature Granulocytes % 0.2 % (0-4); Lymphocytes # 0.7 K/mcL (0.6-4.6); Lymphocytes % 10.9 %; Mean Corpuscular HGB Conc 30.3 g/dL (31.6-35.5); Mean Corpuscular Hemoglobin 28.1 pg (28.0-33.3); Mean Corpuscular Volume 92.9 fL (83.0-100.0); Mean Platelet Volume 11.3 fL (9.4-12.4); Monocytes # 0.4 K/mcL (0.0-1.3); Monocytes % 6.6 %; Neutrophils # 5.1 K/mcL (1.6-8.9); Platelet Count 169 K/mcL (140-400); Red Blood Count 2.95 M/mcL (4.19-5.50); Segmented Neutrophils % 79.1 %; White Blood Count 6.4 K/mcL (4.3-11.1)
[2020-09-19 11:41] LABS: Calcium 9.3 mg/dL (8.6-10.3); Potassium 4.3 mEq/L (3.5-5.1)
[2020-09-19 12:06] LABS: Troponin I 0.03 ng/mL (< 0.04)
[2020-09-19] MEDS ORDERED: Furosemide 40 MG/4 ML VIAL IVP ONE (12:32)
[2020-09-19] MEDS ORDERED: Ondansetron 4 MG/2 ML VIAL IVP PRN (13:11)
[2020-09-19] MEDS ORDERED: *HR* HYDROcodone/Acet 5/325 mg TABLET PO PRN (13:11)
[2020-09-19] MEDS ORDERED: Naloxone 0.4 MG/ML INJ IVP PRN (13:11)
[2020-09-19] MEDS ORDERED: D5% in Water 1,000 ML IVC PRN (13:16)
[2020-09-19] MEDS ORDERED: Dextrose Gel 15 GM/37.5 ML TUBE PO PRN ×2 (13:16)
[2020-09-19] MEDS ORDERED: *HR* Dextrose 50 % in Water (Vial) 50 ML VIAL IVP PRN (13:16)
[2020-09-19] MEDS: Insulin LISPRO 300 UNITS/3 ML VIAL SUBQ SCH (17:29)
[2020-09-19] MEDS: *HR* Heparin 5,000 UNIT/ML VIAL SQ SCH (18:00)
[2020-09-19] MEDS: Bumetanide 1 MG/4 ML VIAL IVP SCH (18:00)
[2020-09-19] MEDS: Budesonide/Formoterol 160/4.5 1 PUFF INH IH SCH (20:03)
[2020-09-19] MEDS: Ipratropium/Albuterol Neb 3 ML IH PRN (20:04)
[2020-09-19] MEDS: *HR* LORazepam 1 MG TABLET PO SCH (21:40)
[2020-09-20] MEDS ORDERED: GI Cocktail 40 ML EACH PO ONE (03:11)
[2020-09-20] MEDS: *HR* Heparin 5,000 UNIT/ML VIAL SQ SCH ×2 (05:18→17:05)
[2020-09-20 05:19] LABS: Basophils % 0.6 %; Eosinophils # 0.3 K/mcL (0.0-0.6); Eosinophils % 6.1 %; Hematocrit 27.8 % (37.5-50.1); Hemoglobin 8.5 g/dL (12.9-16.9); Immature Granulocytes % 0.2 % (0-4); Lymphocytes # 0.9 K/mcL (0.6-4.6); Lymphocytes % 17.5 %; Mean Corpuscular HGB Conc 30.6 g/dL (31.6-35.5); Mean Corpuscular Hemoglobin 28.9 pg (28.0-33.3); Mean Corpuscular Volume 94.6 fL (83.0-100.0); Mean Platelet Volume 11.6 fL (9.4-12.4); Monocytes # 0.4 K/mcL (0.0-1.3); Neutrophils # 3.6 K/mcL (1.6-8.9); Platelet Count 175 K/mcL (140-400); Red Blood Count 2.94 M/mcL (4.19-5.50); Red Cell Distribution Width 17.2 % (11.5-14.5); Segmented Neutrophils % 67.6 %; White Blood Count 5.3 K/mcL (4.3-11.1)
[2020-09-20] MEDS: Ipratropium/Albuterol Neb 3 ML IH PRN ×2 (05:35→23:15)
[2020-09-20 05:40] LABS: Calcium 9.1 mg/dL (8.6-10.3); Magnesium 2.9 mg/dL (1.6-2.6); Phosphorous 5.6 mg/dL (2.7-4.5); Potassium 4.3 mEq/L (3.5-5.1)
[2020-09-20] MEDS ORDERED: 0.9 % Sodium Chloride 250 ML IVC PRN (07:09)
[2020-09-20] MEDS ORDERED: 0.9 % Sodium Chloride 1,000 ML PRIME SCH (07:15)
[2020-09-20] MEDS: Budesonide/Formoterol 160/4.5 1 PUFF INH IH SCH ×2 (07:55→19:49)
[2020-09-20] MEDS: Insulin LISPRO 300 UNITS/3 ML VIAL SUBQ SCH ×3 (08:13→16:10)
[2020-09-20 09:20] LABS: Hepatitis B Surface Antibody < 3.10 mIU/mL
[2020-09-20 09:31] LABS: Hepatitis B Surface Antigen Nonreactive (Nonreactive)
[2020-09-20 09:59] LABS: Hepatitis B Core IgM Nonreactive (Nonreactive)
[2020-09-20] MEDS: Bumetanide 1 MG/4 ML VIAL IVP SCH ×2 (11:54→17:04)
[2020-09-20] MEDS: amLODIPine 5 MG TABLET PO SCH (12:22)
[2020-09-20] MEDS: atenoloL 25 MG TABLET PO SCH (12:22)
[2020-09-20] MEDS: hydrALAZINE 25 MG TABLET PO SCH (20:41)
[2020-09-20] MEDS: *HR* LORazepam 1 MG TABLET PO SCH (20:41)
[2020-09-21 03:19] LABS: Calcium 8.6 mg/dL (8.6-10.3); Magnesium 2.6 mg/dL (1.6-2.6); Phosphorous 4.6 mg/dL (2.7-4.5); Potassium 4.5 mEq/L (3.5-5.1)
[2020-09-21] MEDS: *HR* Heparin 5,000 UNIT/ML VIAL SQ SCH ×2 (06:30→17:07)
[2020-09-21] MEDS: Budesonide/Formoterol 160/4.5 1 PUFF INH IH SCH ×2 (07:21→19:55)
[2020-09-21] MEDS ORDERED: 0.9 % Sodium Chloride 250 ML IVC PRN (08:13)
[2020-09-21] MEDS: Insulin LISPRO 300 UNITS/3 ML VIAL SUBQ SCH ×3 (08:34→16:33)
[2020-09-21] MEDS: Bumetanide 1 MG/4 ML VIAL IVP SCH ×2 (12:19→17:07)
[2020-09-21] MEDS: hydrALAZINE 25 MG TABLET PO SCH ×3 (12:20→20:07)
[2020-09-21] MEDS: amLODIPine 5 MG TABLET PO SCH (12:22)
[2020-09-21] MEDS: atenoloL 25 MG TABLET PO SCH (12:23)
[2020-09-21] MEDS: Isosorbide MONOnitrate (24 HR) 30 MG TAB.ER.24H PO SCH (12:23)
[2020-09-21] MEDS: Ipratropium/Albuterol Neb 3 ML IH PRN (19:55)
[2020-09-21] MEDS: *HR* LORazepam 1 MG TABLET PO SCH (20:07)
[2020-09-22] MEDS: Ipratropium/Albuterol Neb 3 ML IH PRN ×4 (03:54→16:19)
[2020-09-22] MEDS: *HR* Heparin 5,000 UNIT/ML VIAL SQ SCH ×2 (05:52→17:23)
[2020-09-22] MEDS: Insulin LISPRO 300 UNITS/3 ML VIAL SUBQ SCH ×3 (07:57→16:30)
[2020-09-22] MEDS: Budesonide/Formoterol 160/4.5 1 PUFF INH IH SCH ×2 (07:59→20:28)
[2020-09-22] MEDS: Bumetanide 1 MG/4 ML VIAL IVP SCH ×2 (09:36→16:08)
[2020-09-22] MEDS: hydrALAZINE 25 MG TABLET PO SCH ×3 (09:37→19:59)
[2020-09-22] MEDS: amLODIPine 5 MG TABLET PO SCH (09:37)
[2020-09-22] MEDS: atenoloL 25 MG TABLET PO SCH (09:38)
[2020-09-22] MEDS: Isosorbide MONOnitrate (24 HR) 30 MG TAB.ER.24H PO SCH (09:38)
[2020-09-22 11:13] LABS: Calcium 8.5 mg/dL (8.6-10.3); Magnesium 2.3 mg/dL (1.6-2.6); Phosphorous 3.5 mg/dL (2.7-4.5); Potassium 4.5 mEq/L (3.5-5.1)
[2020-09-22] MEDS: *HR* LORazepam 1 MG TABLET PO SCH (19:59)
[2020-09-23 02:46] LABS: Calcium 8.6 mg/dL (8.6-10.3); Magnesium 2.2 mg/dL (1.6-2.6); Phosphorous 3.9 mg/dL (2.7-4.5); Potassium 4.6 mEq/L (3.5-5.1)
[2020-09-23] MEDS: *HR* Heparin 5,000 UNIT/ML VIAL SQ SCH ×2 (05:02→17:12)
[2020-09-23] MEDS: Ipratropium/Albuterol Neb 3 ML IH PRN ×2 (07:35→20:09)
[2020-09-23] MEDS: Budesonide/Formoterol 160/4.5 1 PUFF INH IH SCH ×2 (07:35→20:10)
[2020-09-23] MEDS ORDERED: 0.9 % Sodium Chloride 250 ML IVC PRN (07:48)
[2020-09-23] MEDS ORDERED: 0.9 % Sodium Chloride 1,000 ML PRIME SCH (08:00)
[2020-09-23] MEDS: Insulin LISPRO 300 UNITS/3 ML VIAL SUBQ SCH ×3 (08:11→16:33)
[2020-09-23] MEDS: hydrALAZINE 25 MG TABLET PO SCH ×3 (08:11→20:14)
[2020-09-23] MEDS: Isosorbide MONOnitrate (24 HR) 30 MG TAB.ER.24H PO SCH (08:11)
[2020-09-23] MEDS: Bumetanide 1 MG/4 ML VIAL IVP SCH ×2 (08:12→17:11)
[2020-09-23] MEDS: amLODIPine 5 MG TABLET PO SCH (08:14)
[2020-09-23] MEDS: atenoloL 25 MG TABLET PO SCH (08:16)
[2020-09-23] MEDS: *HR* LORazepam 1 MG TABLET PO SCH (20:14)
[2020-09-24 03:32] LABS: Hematocrit 25.6 % (37.5-50.1); Hemoglobin 7.8 g/dL (12.9-16.9); Mean Corpuscular HGB Conc 30.5 g/dL (31.6-35.5); Mean Corpuscular Hemoglobin 28.6 pg (28.0-33.3); Mean Corpuscular Volume 93.8 fL (83.0-100.0); Mean Platelet Volume 11.2 fL (9.4-12.4); Platelet Count 148 K/mcL (140-400); Red Blood Count 2.73 M/mcL (4.19-5.50); Red Cell Distribution Width 17.1 % (11.5-14.5); White Blood Count 4.2 K/mcL (4.3-11.1)
[2020-09-24 03:50] LABS: Calcium 8.4 mg/dL (8.6-10.3); Phosphorous 2.9 mg/dL (2.7-4.5)
[2020-09-24] MEDS: *HR* Heparin 5,000 UNIT/ML VIAL SQ SCH (06:14)
[2020-09-24] MEDS: amLODIPine 5 MG TABLET PO SCH (08:27)
[2020-09-24] MEDS: Bumetanide 1 MG/4 ML VIAL IVP SCH (08:27)
[2020-09-24] MEDS: hydrALAZINE 25 MG TABLET PO SCH (08:27)
[2020-09-24] MEDS: atenoloL 25 MG TABLET PO SCH (08:27)
[2020-09-24] MEDS: Isosorbide MONOnitrate (24 HR) 30 MG TAB.ER.24H PO SCH (08:27)
[2020-09-24] MEDS: Insulin LISPRO 300 UNITS/3 ML VIAL SUBQ SCH ×2 (08:28→11:32)
[2020-09-24 10:29] VITALS: BP 135/68
[2020-09-24] MEDS: Ipratropium/Albuterol Neb 3 ML IH PRN (11:35)
[2020-09-24] MEDS: Budesonide/Formoterol 160/4.5 1 PUFF INH IH SCH (11:35)
[2020-09-24] MEDS ORDERED: Bumetanide 1 MG TABLET PO SCH (17:00)
== END 2020-09-24 14:58 | disposition home or self-care (01) | DRG 682 ==
LOC: EMEROOARM 10:29 → 2ANU 10:29 → SUATTDRO 13:53 → 2ANU 14:25
PROVIDERS: ADMIT Internal Medicine; ATTEND Internal Medicine

== ENCOUNTER 2020-12-12 03:34 | Inpatient (IN) ==
[2020-12-12] MEDS ORDERED: Ondansetron 4 MG/2 ML VIAL IVP PRN (05:04)
[2020-12-12] MEDS ORDERED: Naloxone 0.4 MG/ML INJ IVP PRN (05:04)
[2020-12-12] MEDS ORDERED: Acetaminophen 325 MG TABLET PO PRN (05:04)
[2020-12-12] MEDS ORDERED: Melatonin 3 MG TABLET PO PRN (05:04)
[2020-12-12] MEDS ORDERED: Perflutren Lipid Microsphere 1.3 ML in 0.9 % Sodium Chloride 8.7 ML IVP PRN (08:13)
[2020-12-12] MEDS ORDERED: Aspirin 325 MG TABLET PO ONE (08:26)
[2020-12-12] MEDS ORDERED: 0.9 % Sodium Chloride 1,000 ML PRIME SCH (12:30)
[2020-12-12] MEDS ORDERED: 0.9 % Sodium Chloride 250 ML IVC PRN (12:30)
[2020-12-12 13:13] LABS: Hepatitis B Surface Antibody < 3.10 mIU/mL
[2020-12-12 13:24] LABS: Hepatitis B Surface Antigen Nonreactive (Nonreactive)
[2020-12-12] MEDS: Ipratropium/Albuterol Neb 3 ML IH PRN ×2 (16:19→20:25)
[2020-12-12] MEDS: *HR* LORazepam 1 MG TABLET PO SCH (21:37)
[2020-12-12] MEDS: Budesonide/Formoterol 160/4.5 1 PUFF INH IH SCH (23:11)
[2020-12-13 02:57] LABS: Calcium 9.3 mg/dL (8.6-10.3); Potassium 4.1 mEq/L (3.5-5.1)
[2020-12-13] MEDS ORDERED: D5% in Water 1,000 ML IVC PRN (07:29)
[2020-12-13] MEDS ORDERED: Dextrose Gel 15 GM/37.5 ML TUBE PO PRN ×2 (07:29)
[2020-12-13] MEDS ORDERED: *HR* Dextrose 50 % in Water (Vial) 50 ML VIAL IVP PRN (07:29)
[2020-12-13] MEDS ORDERED: 0.9 % Sodium Chloride 250 ML IVC PRN (07:54)
[2020-12-13] MEDS: Aspirin 81 MG TAB.CHEW PO SCH (07:58)
[2020-12-13] MEDS: Insulin LISPRO 300 UNITS/3 ML VIAL SUBQ SCH ×3 (07:59→17:04)
[2020-12-13] MEDS ORDERED: Isovue-370 500 ML BOTTLE IVP ONE (08:17)
[2020-12-13] MEDS ORDERED: Albuterol 2.5 MG/3 ML NEBULIZER IH PRN (08:19)
[2020-12-13] MEDS: Budesonide/Formoterol 160/4.5 1 PUFF INH IH SCH ×2 (09:35→21:51)
[2020-12-13 12:01] LABS: Basophils % 0.3 %; Eosinophils # 0.1 K/mcL (0.0-0.6); Hematocrit 37.6 % (37.5-50.1); Hemoglobin 11.2 g/dL (12.9-16.9); Immature Granulocytes % 0.3 % (0-4); Lymphocytes # 0.7 K/mcL (0.6-4.6); Mean Corpuscular HGB Conc 29.8 g/dL (31.6-35.5); Mean Corpuscular Hemoglobin 29.5 pg (28.0-33.3); Mean Corpuscular Volume 98.9 fL (83.0-100.0); Mean Platelet Volume 10.9 fL (9.4-12.4); Monocytes # 0.6 K/mcL (0.0-1.3); Monocytes % 7.9 %; Neutrophils # 5.9 K/mcL (1.6-8.9); Platelet Count 164 K/mcL (140-400); Red Cell Distribution Width 16.9 % (11.5-14.5); Segmented Neutrophils % 81.5 %; White Blood Count 7.2 K/mcL (4.3-11.1)
[2020-12-13 12:12] LABS: INR 1.1; Prothrombin Time 12.8 Seconds (9.4-12.1)
[2020-12-13 12:23] LABS: Estimated Average Glucose 117 mg/dl; Hemoglobin A1C 5.7 %
[2020-12-13 12:40] LABS: Lactate Dehydrogenase 141 Units/L (140-271); Total Protein 6.1 g/dL (6.4-8.9)
[2020-12-13] MEDS: atenoloL 25 MG TABLET PO SCH (15:35)
[2020-12-13] MEDS: Valsartan 80 MG TABLET PO SCH (15:35)
[2020-12-13] MEDS: hydrALAZINE 25 MG TABLET PO SCH ×2 (15:35→20:13)
[2020-12-13] MEDS: amLODIPine 5 MG TABLET PO SCH (15:35)
[2020-12-13] MEDS: Isosorbide MONOnitrate (24 HR) 30 MG TAB.ER.24H PO SCH (15:35)
[2020-12-13] MEDS: *HR* Heparin 5,000 UNIT/ML VIAL SQ SCH (17:04)
[2020-12-13] MEDS: Ipratropium/Albuterol Neb 3 ML IH PRN ×2 (18:20→21:51)
[2020-12-13 20:06] LABS: RBC,Pleural Fluid < 2000 RBC/mcL
[2020-12-13] MEDS: *HR* LORazepam 1 MG TABLET PO SCH (20:13)
[2020-12-13] MEDS ORDERED: Insulin LISPRO 300 UNITS/3 ML VIAL SUBQ SCH (21:00)
[2020-12-13 21:08] LABS: Basophils,Pleural Fluid 0 %; Eosinophils,Pleural Fluid 0 %
[2020-12-13 21:09] LABS: Appearance of Pleural Fl Clear (Clear)
[2020-12-14 01:24] LABS: Hematocrit 32.6 % (37.5-50.1); Mean Corpuscular HGB Conc 29.4 g/dL (31.6-35.5); Mean Corpuscular Hemoglobin 29.2 pg (28.0-33.3); Mean Corpuscular Volume 99.1 fL (83.0-100.0); Platelet Count 148 K/mcL (140-400); Red Blood Count 3.29 M/mcL (4.19-5.50); Red Cell Distribution Width 16.8 % (11.5-14.5); White Blood Count 6.1 K/mcL (4.3-11.1)
[2020-12-14 01:28] LABS: Calcium 8.7 mg/dL (8.6-10.3); Potassium 4.3 mEq/L (3.5-5.1)
[2020-12-14 01:30] LABS: Hemoglobin 9.6 g/dL (12.9-16.9)
[2020-12-14] MEDS: *HR* Heparin 5,000 UNIT/ML VIAL SQ SCH (05:35)
[2020-12-14] MEDS: Budesonide/Formoterol 160/4.5 1 PUFF INH IH SCH (07:48)
[2020-12-14] MEDS: Insulin LISPRO 300 UNITS/3 ML VIAL SUBQ SCH (08:22)
[2020-12-14] MEDS: amLODIPine 5 MG TABLET PO SCH (08:26)
[2020-12-14] MEDS: Valsartan 80 MG TABLET PO SCH (08:26)
[2020-12-14] MEDS: Aspirin 81 MG TAB.CHEW PO SCH (08:26)
[2020-12-14] MEDS: hydrALAZINE 25 MG TABLET PO SCH (08:26)
[2020-12-14] MEDS: atenoloL 25 MG TABLET PO SCH (08:26)
[2020-12-14] MEDS: Isosorbide MONOnitrate (24 HR) 30 MG TAB.ER.24H PO SCH (08:27)
[2020-12-14] MEDS ORDERED: Furosemide 40 MG TABLET PO SCH (09:00)
[2020-12-14 09:57] VITALS: BP 116/63
== END 2020-12-14 12:31 | disposition home or self-care (01) | DRG 280 ==
LOC: 2ANU → SUATTDRO 04:51
PROVIDERS: ADMIT Internal Medicine; ATTEND Internal Medicine

== ENCOUNTER 2021-03-11 14:31 | Inpatient (IN) ==
[2021-03-11] MEDS ORDERED: Melatonin 3 MG TABLET PO PRN (19:28)
[2021-03-11] MEDS ORDERED: Ondansetron 4 MG/2 ML VIAL IVP PRN (19:28)
[2021-03-11] MEDS ORDERED: Naloxone 0.4 MG/ML INJ IVP PRN (19:28)
[2021-03-11] MEDS ORDERED: *HR* LORazepam 1 MG TABLET PO PRN (19:52)
[2021-03-11] MEDS ORDERED: *HR* Heparin 5,000 UNIT/ML VIAL IVP ONE (20:41)
[2021-03-11] MEDS ORDERED: *HR* Heparin 5,000 UNIT/ML VIAL IVP PRN ×2 (20:41)
[2021-03-11] MEDS ORDERED: Perflutren Lipid Microsphere 1.3 ML in 0.9 % Sodium Chloride 8.7 ML IVP PRN (20:57)
[2021-03-11] MEDS ORDERED: Furosemide 40 MG/4 ML VIAL IVP ONE (21:00)
[2021-03-11] MEDS: atenoloL 25 MG TABLET PO SCH (21:48)
[2021-03-11] MEDS: hydrALAZINE 25 MG TABLET PO SCH (21:48)
[2021-03-11] MEDS: Heparin 25,000UNIT/250ML 1/2NS 25,000 UNIT/250 ML IV.SOLN IVC SCH (21:49)
[2021-03-11 22:02] LABS: Heparin anti-factor XA UFH < 0.04 IU/mL (0.30-0.70); INR 1.1
[2021-03-11 22:04] LABS: Activated Partial Thrombo Time 33.1 Seconds (26.0-36.0)
[2021-03-12 05:05] LABS: Hematocrit 36.7 % (37.5-50.1); Hemoglobin 11.1 g/dL (12.9-16.9); Mean Corpuscular HGB Conc 30.2 g/dL (31.6-35.5); Mean Corpuscular Hemoglobin 30.7 pg (28.0-33.3); Mean Corpuscular Volume 101.4 fL (83.0-100.0); Mean Platelet Volume 10.3 fL (9.4-12.4); Platelet Count 181 K/mcL (140-400); Red Blood Count 3.62 M/mcL (4.19-5.50); Red Cell Distribution Width 14.7 % (11.5-14.5); White Blood Count 5.6 K/mcL (4.3-11.1)
[2021-03-12 05:25] LABS: Calcium 10.5 mg/dL (8.6-10.3); Potassium 4.6 mEq/L (3.5-5.1)
[2021-03-12 05:40] LABS: Thyroid Stimulating Hormone 2.164 mcIU/mL (0.340-5.600)
[2021-03-12] MEDS: hydrALAZINE 25 MG TABLET PO SCH ×4 (07:42→19:50)
[2021-03-12] MEDS: atenoloL 25 MG TABLET PO SCH (07:42)
[2021-03-12] MEDS: Isosorbide MONOnitrate (24 HR) 30 MG TAB.ER.24H PO SCH (07:42)
[2021-03-12] MEDS ORDERED: 0.9 % Sodium Chloride 250 ML IVC PRN (08:13)
[2021-03-12] MEDS ORDERED: 0.9 % Sodium Chloride 1,000 ML PRIME SCH (08:15)
[2021-03-12] MEDS ORDERED: Furosemide 20 MG/2 ML VIAL IVP SCH (09:00)
[2021-03-12 09:38] LABS: Albumin 3.6 g/dL (3.5-5.7)
[2021-03-12 09:57] LABS: Magnesium 2.6 mg/dL (1.6-2.6)
[2021-03-12 10:34] LABS: Hepatitis B Surface Antibody < 3.10 mIU/mL
[2021-03-12 10:45] LABS: Hepatitis B Surface Antigen Nonreactive (Nonreactive)
[2021-03-12] MEDS ORDERED: Dextrose Gel 15 GM/37.5 ML TUBE PO PRN ×2 (11:53)
[2021-03-12] MEDS ORDERED: D5% in Water 1,000 ML IVC PRN (11:53)
[2021-03-12] MEDS ORDERED: *HR* Dextrose 50 % in Water (Vial) 50 ML VIAL IVP PRN (11:53)
[2021-03-12] MEDS ORDERED: *HR* LORazepam 2 MG/ML VIAL IVP PRN ×3 (13:03)
[2021-03-12] MEDS: Insulin LISPRO 300 UNITS/3 ML VIAL SUBQ SCH ×3 (13:06→19:48)
[2021-03-12] MEDS: Aspirin Enteric Coated 81 MG Tablet PO SCH (13:06)
[2021-03-12] MEDS ORDERED: Ipratropium/Albuterol Neb 3 ML IH PRN (14:14)
[2021-03-12] MEDS ORDERED: Albumin 25% 25gram/100mL 25 GM/100 ML IV.SOLN ONE (14:20)
[2021-03-12 16:08] LABS: RBC,Pleural Fluid < 2000 RBC/mcL
[2021-03-12 16:14] LABS: Total Protein,Pleural Fluid 2.1 g/dL
[2021-03-12 17:17] LABS: Appearance of Pleural Fl Clear (Clear)
[2021-03-12 19:24] LABS: Eosinophils,Pleural Fluid 0 %; Monocytes,Pleural Fluid 0 %
[2021-03-12] MEDS: *HR* LORazepam 1 MG TABLET PO SCH (19:44)
[2021-03-13 01:11] LABS: Basophils % 0.2 %; Eosinophils % 0.2 %; Hematocrit 34.6 % (37.5-50.1); Hemoglobin 10.6 g/dL (12.9-16.9); Immature Granulocytes % 0.2 % (0-4); Lymphocytes # 0.7 K/mcL (0.6-4.6); Lymphocytes % 11.8 %; Mean Corpuscular HGB Conc 30.6 g/dL (31.6-35.5); Mean Corpuscular Hemoglobin 31.5 pg (28.0-33.3); Mean Corpuscular Volume 102.7 fL (83.0-100.0); Mean Platelet Volume 10.4 fL (9.4-12.4); Monocytes # 0.5 K/mcL (0.0-1.3); Monocytes % 8.5 %; Neutrophils # 4.6 K/mcL (1.6-8.9); Platelet Count 160 K/mcL (140-400); Red Blood Count 3.37 M/mcL (4.19-5.50); Red Cell Distribution Width 14.7 % (11.5-14.5); Segmented Neutrophils % 79.1 %; White Blood Count 5.8 K/mcL (4.3-11.1)
[2021-03-13 01:31] LABS: Albumin 3.7 g/dL (3.5-5.7); Albumin/Globulin Ratio 1.5 (1.1-2.2); Bilirubin,Direct 0.1 mg/dL (0.0-0.2); Bilirubin,Indirect 0.2 mg/dL (0.0-1.0); Bilirubin,Total 0.3 mg/dL (0.3-1.0); Calcium 9.7 mg/dL (8.6-10.3); Globulin 2.4 g/dL (2.4-3.5); Magnesium 2.2 mg/dL (1.6-2.6); Potassium 4.6 mEq/L (3.5-5.1); Total Protein 6.1 g/dL (6.4-8.9)
[2021-03-13 01:51] LABS: Ferritin 608 ng/mL (20-250)
[2021-03-13 01:56] LABS: Folate 20.9 ng/mL (3.0-16.0)
[2021-03-13 02:41] LABS: % Iron Saturation 49 % (20-55); Iron 98 mcg/dL (65-175); Transferrin 143 mg/dL (203-362)
[2021-03-13] MEDS: Heparin 25,000UNIT/250ML 1/2NS 25,000 UNIT/250 ML IV.SOLN IVC SCH ×2 (08:26→20:55)
[2021-03-13] MEDS: Insulin LISPRO 300 UNITS/3 ML VIAL SUBQ SCH ×4 (08:29→20:55)
[2021-03-13] MEDS: hydrALAZINE 25 MG TABLET PO SCH ×3 (08:30→20:53)
[2021-03-13] MEDS: Metoprolol XL (24 HR) Succ 25 MG TAB.ER.24H PO SCH (08:30)
[2021-03-13] MEDS: Valsartan 80 MG TABLET PO SCH (08:31)
[2021-03-13] MEDS: Cholecalciferol (D-3) 1,000 UNIT (25MCG) TABLET PO SCH (08:52)
[2021-03-13] MEDS: Aspirin Enteric Coated 81 MG Tablet PO SCH (08:52)
[2021-03-13] MEDS: Isosorbide MONOnitrate (24 HR) 30 MG TAB.ER.24H PO SCH (08:53)
[2021-03-13] MEDS: Multivit/Ca/Min/Fe/FA 1 TAB TABLET PO SCH (08:53)
[2021-03-13] MEDS ORDERED: *HR* Warfarin 2.5 MG TABLET PO ONE (18:00)
[2021-03-13] MEDS ORDERED: Warfarin perPT PO PRN (18:00)
[2021-03-13] MEDS: *HR* LORazepam 1 MG TABLET PO SCH (20:54)
[2021-03-14 03:25] LABS: Basophils % 0.5 %; Eosinophils # 0.2 K/mcL (0.0-0.6); Eosinophils % 3.8 %; Hematocrit 33.7 % (37.5-50.1); Immature Granulocytes % 0.2 % (0-4); Lymphocytes % 17.9 %; Mean Corpuscular HGB Conc 29.7 g/dL (31.6-35.5); Mean Corpuscular Hemoglobin 30.2 pg (28.0-33.3); Mean Corpuscular Volume 101.8 fL (83.0-100.0); Mean Platelet Volume 10.6 fL (9.4-12.4); Monocytes # 0.4 K/mcL (0.0-1.3); Monocytes % 6.4 %; Neutrophils # 3.9 K/mcL (1.6-8.9); Platelet Count 147 K/mcL (140-400); Red Blood Count 3.31 M/mcL (4.19-5.50); Red Cell Distribution Width 14.7 % (11.5-14.5); Segmented Neutrophils % 71.2 %; White Blood Count 5.5 K/mcL (4.3-11.1)
[2021-03-14 03:37] LABS: Calcium 9.9 mg/dL (8.6-10.3); Magnesium 2.2 mg/dL (1.6-2.6); Potassium 4.9 mEq/L (3.5-5.1)
[2021-03-14] MEDS: Insulin LISPRO 300 UNITS/3 ML VIAL SUBQ SCH ×3 (07:47→17:10)
[2021-03-14 08:09] LABS: INR 1.1; Prothrombin Time 12.5 Seconds (9.4-12.1)
[2021-03-14] MEDS ORDERED: 0.9 % Sodium Chloride 250 ML IVC PRN (08:43)
[2021-03-14] MEDS: Heparin 25,000UNIT/250ML 1/2NS 25,000 UNIT/250 ML IV.SOLN IVC SCH (09:58)
[2021-03-14] MEDS: Isosorbide MONOnitrate (24 HR) 30 MG TAB.ER.24H PO SCH (10:20)
[2021-03-14] MEDS: Metoprolol XL (24 HR) Succ 25 MG TAB.ER.24H PO SCH (10:20)
[2021-03-14] MEDS: Valsartan 80 MG TABLET PO SCH (10:20)
[2021-03-14] MEDS: Multivit/Ca/Min/Fe/FA 1 TAB TABLET PO SCH (10:52)
[2021-03-14] MEDS: Cholecalciferol (D-3) 1,000 UNIT (25MCG) TABLET PO SCH (10:52)
[2021-03-14] MEDS: hydrALAZINE 25 MG TABLET PO SCH ×2 (10:53→15:18)
[2021-03-14 14:29] VITALS: BP 96/62; PULSE 73; TEMP 98
[2021-03-14 17:04] VITALS: O2SAT 96
[2021-03-14] MEDS ORDERED: *HR* Warfarin 2.5 MG TABLET PO ONE (18:00)
[2021-03-15 07:35] LABS: Fluid Source for Albumin PLEURAL
== END 2021-03-14 18:15 | disposition home health service (06) | DRG 291 ==
LOC: 2ANU → SUATTDRO 18:20
PROVIDERS: ADMIT Internal Medicine; ATTEND Pharmacist

== ENCOUNTER 2021-03-22 21:09 | Observation (INO) ==
[2021-03-22] MEDS ORDERED: Melatonin 3 MG TABLET PO PRN (23:30)
[2021-03-22] MEDS ORDERED: Ondansetron 4 MG/2 ML VIAL IVP PRN (23:30)
[2021-03-22] MEDS ORDERED: Acetaminophen 325 MG TABLET PO PRN (23:30)
[2021-03-22] MEDS ORDERED: Naloxone 0.4 MG/ML INJ IVP PRN (23:30)
[2021-03-23 00:44] LABS: Basophils % 0.4 %; Eosinophils # 0.1 K/mcL (0.0-0.6); Eosinophils % 1.6 %; Hematocrit 31.2 % (37.5-50.1); Hemoglobin 9.6 g/dL (12.9-16.9); Immature Granulocytes % 0.3 % (0-4); Lymphocytes # 0.6 K/mcL (0.6-4.6); Lymphocytes % 8.2 %; Mean Corpuscular HGB Conc 30.8 g/dL (31.6-35.5); Mean Corpuscular Hemoglobin 30.4 pg (28.0-33.3); Mean Corpuscular Volume 98.7 fL (83.0-100.0); Mean Platelet Volume 10.7 fL (9.4-12.4); Monocytes # 0.6 K/mcL (0.0-1.3); Monocytes % 7.9 %; Neutrophils # 5.7 K/mcL (1.6-8.9); Platelet Count 180 K/mcL (140-400); Red Blood Count 3.16 M/mcL (4.19-5.50); Red Cell Distribution Width 14.6 % (11.5-14.5); Segmented Neutrophils % 81.6 %; White Blood Count 6.9 K/mcL (4.3-11.1)
[2021-03-23 00:52] LABS: INR 3.6; Prothrombin Time 40.5 Seconds (9.4-12.1)
[2021-03-23 00:55] LABS: Activated Partial Thrombo Time 46.5 Seconds (26.0-36.0)
[2021-03-23 01:05] LABS: Albumin 3.4 g/dL (3.5-5.7); Albumin/Globulin Ratio 1.4 (1.1-2.2); Bilirubin,Total 0.6 mg/dL (0.3-1.0); Calcium 9.3 mg/dL (8.6-10.3); Globulin 2.5 g/dL (2.4-3.5); Magnesium 2.3 mg/dL (1.6-2.6); Phosphorous 2.6 mg/dL (2.7-4.5); Potassium 3.9 mEq/L (3.5-5.1); Total Protein 5.9 g/dL (6.4-8.9)
[2021-03-23] MEDS ORDERED: Furosemide 40 MG/4 ML VIAL IVP SCH (09:00)
[2021-03-23] MEDS ORDERED: Metoprolol XL (24 HR) Succ 50 MG TAB.ER.24H PO SCH (09:00)
[2021-03-23] MEDS: Levalbuterol Neb 0.63 MG/3 ML IH PRN ×2 (09:54→21:19)
[2021-03-23] MEDS ORDERED: Saline Nasal Spray 44 ML BOTTLE NS PRN (15:17)
[2021-03-23] MEDS: Furosemide 40 MG TABLET PO SCH (17:12)
[2021-03-23] MEDS ORDERED: Warfarin perPT PO PRN (18:00)
[2021-03-23] MEDS: *HR* LORazepam 1 MG TABLET PO SCH (20:06)
[2021-03-23] MEDS: Metoprolol XL (24 HR) Succ 50 MG TAB.ER.24H PO SCH (20:07)
[2021-03-23] MEDS: Budesonide/Formoterol 160/4.5 1 PUFF INH IH SCH (21:14)
[2021-03-24 05:58] LABS: Basophils % 0.5 %; Eosinophils # 0.4 K/mcL (0.0-0.6); Eosinophils % 6.3 %; Hematocrit 30.8 % (37.5-50.1); Hemoglobin 9.5 g/dL (12.9-16.9); Immature Granulocytes % 0.4 % (0-4); Lymphocytes # 0.7 K/mcL (0.6-4.6); Lymphocytes % 13.3 %; Mean Corpuscular HGB Conc 30.8 g/dL (31.6-35.5); Mean Corpuscular Volume 100.7 fL (83.0-100.0); Mean Platelet Volume 10.3 fL (9.4-12.4); Monocytes # 0.5 K/mcL (0.0-1.3); Monocytes % 9.2 %; Neutrophils # 3.9 K/mcL (1.6-8.9); Platelet Count 194 K/mcL (140-400); Red Blood Count 3.06 M/mcL (4.19-5.50); Red Cell Distribution Width 14.5 % (11.5-14.5); Segmented Neutrophils % 70.3 %; White Blood Count 5.6 K/mcL (4.3-11.1)
[2021-03-24 06:08] LABS: INR 2.8; Prothrombin Time 31.8 Seconds (9.4-12.1)
[2021-03-24 06:21] LABS: Calcium 9.7 mg/dL (8.6-10.3); Potassium 4.5 mEq/L (3.5-5.1)
[2021-03-24] MEDS ORDERED: 0.9 % Sodium Chloride 250 ML IVC PRN (07:55)
[2021-03-24] MEDS ORDERED: 0.9 % Sodium Chloride 1,000 ML PRIME SCH (08:00)
[2021-03-24] MEDS: Budesonide/Formoterol 160/4.5 1 PUFF INH IH SCH ×2 (08:16→20:22)
[2021-03-24] MEDS: Isosorbide MONOnitrate (24 HR) 30 MG TAB.ER.24H PO SCH (08:50)
[2021-03-24] MEDS: Multivit/Ca/Min/Fe/FA 1 TAB TABLET PO SCH (08:50)
[2021-03-24] MEDS: Furosemide 40 MG TABLET PO SCH ×2 (08:51→19:01)
[2021-03-24] MEDS: Metoprolol XL (24 HR) Succ 50 MG TAB.ER.24H PO SCH ×2 (08:51→21:53)
[2021-03-24] MEDS: Valsartan 80 MG TABLET PO SCH (08:51)
[2021-03-24] MEDS ORDERED: Cholecalciferol (D-3) 1,000 UNIT (25MCG) TABLET PO SCH (09:00)
[2021-03-24] MEDS ORDERED: NON-FORMULARY MEDICATION 1 EACH EACH (Omega-3/Dha/Epa/Fish Oil [Fish Oil 1,000 Mg Softgel] PO SCH (09:00)
[2021-03-24] MEDS: Levalbuterol Neb 0.63 MG/3 ML IH PRN ×2 (11:07→20:23)
[2021-03-24] MEDS ORDERED: *HR* Warfarin 1 MG TABLET PO ONE (18:00)
[2021-03-24] MEDS: *HR* LORazepam 1 MG TABLET PO SCH (21:53)
[2021-03-25 01:52] LABS: Basophils % 0.3 %; Eosinophils # 0.2 K/mcL (0.0-0.6); Eosinophils % 3.5 %; Hematocrit 30.8 % (37.5-50.1); Hemoglobin 9.2 g/dL (12.9-16.9); Immature Granulocytes % 0.2 % (0-4); Lymphocytes # 0.7 K/mcL (0.6-4.6); Lymphocytes % 11.4 %; Mean Corpuscular HGB Conc 29.9 g/dL (31.6-35.5); Mean Corpuscular Hemoglobin 30.2 pg (28.0-33.3); Mean Platelet Volume 10.7 fL (9.4-12.4); Monocytes # 0.5 K/mcL (0.0-1.3); Monocytes % 8.1 %; Neutrophils # 4.6 K/mcL (1.6-8.9); Platelet Count 195 K/mcL (140-400); Red Blood Count 3.05 M/mcL (4.19-5.50); Red Cell Distribution Width 14.5 % (11.5-14.5); Segmented Neutrophils % 76.5 %; White Blood Count 6.1 K/mcL (4.3-11.1)
[2021-03-25 01:59] LABS: Calcium 8.9 mg/dL (8.6-10.3); INR 2.5; Potassium 4.5 mEq/L (3.5-5.1); Prothrombin Time 28.5 Seconds (9.4-12.1)
[2021-03-25] MEDS ORDERED: Regadenoson 0.4 MG/5 ML SYRINGE IVP ONE (06:34)
[2021-03-25] MEDS ORDERED: Cholecalciferol (D-3) 1,000 UNIT (25MCG) TABLET PO SCH (09:00)
[2021-03-25] MEDS: Multivit/Ca/Min/Fe/FA 1 TAB TABLET PO SCH (09:25)
[2021-03-25] MEDS: Metoprolol XL (24 HR) Succ 50 MG TAB.ER.24H PO SCH (09:25)
[2021-03-25] MEDS: Valsartan 80 MG TABLET PO SCH (09:26)
[2021-03-25] MEDS: Furosemide 40 MG TABLET PO SCH (09:27)
[2021-03-25] MEDS: Isosorbide MONOnitrate (24 HR) 30 MG TAB.ER.24H PO SCH (09:27)
[2021-03-25] MEDS: Levalbuterol Neb 0.63 MG/3 ML IH PRN (10:12)
[2021-03-25] MEDS: Budesonide/Formoterol 160/4.5 1 PUFF INH IH SCH (10:12)
[2021-03-25 11:44] VITALS: O2SAT 97
[2021-03-25 16:07] VITALS: BP 125/60; PULSE 89; TEMP 97.3
[2021-03-25] MEDS ORDERED: *HR* Warfarin 1 MG TABLET PO ONE (18:00)
== END 2021-03-25 18:26 | disposition home health service (06) ==
LOC: 3NENU → SUATTDRO 22:37
PROVIDERS: ADMIT Internal Medicine; ATTEND Internal Medicine